=== PATIENT | male | born 1995 | race Caucasian/White ===

== ENCOUNTER 2017-08-27 14:48 | Emergency (ER) | payer MEDICAID, OTHER ==
[~2017-08-27] VITALS: Ht 177.8 cm; Wt 100.0 kg
[2017-08-27] MEDS ORDERED: CEPHALEXIN 500MG CAPSULE PO ONE (15:15)
[2017-08-27] MEDS ORDERED: SULFAMETHOXAZOLE/TRIMETHOPRIM 400/80MG TAB PO ONE (15:15)
[2017-08-27] MEDS ORDERED: IBUPROFEN 800MG TABLET PO ONE (15:15)
[2017-08-27] MEDS ORDERED: TETANUS, DIPHTHERIA, PERTUSSIS VAC/PF 0.5ML (>7YR OLD) IM ONE (15:15)
[2017-08-27 16:10] VITALS: BP 121/79
[2017-08-27] MEDS ORDERED: SULFAMETHOXAZOLE/TRIMETHOPRIM 800/160MG TABLET PO SCH (16:15)
== END 2017-08-27 16:12 | disposition home or self-care (01) ==
LOC: ER 15:03
DX: L03.011 Cellulitis of right finger (principal); Z23 Encounter for immunization
CPT/HCPCS: 90471; 90715; 99283

== ENCOUNTER 2022-04-03 08:54 | Emergency (ER) | payer OTHER ==
[~2022-04-03] VITALS: Ht 180.3 cm; Wt 96.0 kg
[2022-04-03] MEDS ORDERED: KETOROLAC 60MG/2ML VIAL IM ONE (09:30)
[2022-04-03 09:52] VITALS: BP 105/71
== END 2022-04-03 10:29 ==
LOC: ER 08:54
DX: M54.9 Dorsalgia, unspecified (principal); M54.2 Cervicalgia; M25.519 Pain in unspecified shoulder; F12.10 Cannabis abuse, uncomplicated
CPT/HCPCS: 96372; 99283; J1885; Z7610